=== PATIENT | male | born 1955 | race African-American/Black ===

== ENCOUNTER 2021-10-20 15:27 | Emergency (ER) | payer OTHER ==
[~2021-10-20] VITALS: Ht 188 cm; Wt 70.0 kg
[2021-10-20 15:37] VITALS: BP 138/81
== END 2021-10-20 20:53 | disposition left against medical advice (07) ==
LOC: ER 15:27
DX: Z53.21 Procedure and treatment not carried out due to patient leaving prior to being seen by health care provider (principal)